=== PATIENT | male | born 1965 | race Caucasian/White ===

== ENCOUNTER 2019-09-11 22:24 | Inpatient (IN) ==
[2019-09-11] MEDS ORDERED: NITROGLYCERIN SL PRN (22:34)
[2019-09-11] MEDS ORDERED: ASPIRIN PO ONE (22:34)
[2019-09-11 22:54] LABS: BASO# 0.04 X1000 (0.0-0.2); BASO% 0.4 % (0.0-0.8); EOS# 0.32 X1000 (0.0-0.7); HEMATOCRIT 50.6 % (42.0-52.0); HEMOGLOBIN 17.5 g/dL (14.0-18.0); IMM GRAN# 0.02 X1000 (0.0-0.04); IMM GRAN% 0.2 % (0.0-0.5); LYMPH# 4.45 X1000 (1.2-3.4); LYMPH% 42.3 % (20.5-51.1); MCH 30.6 PG (27-31); MCHC 34.6 g/dL (33-37); MCV 88.6 FL (81-99); MONO# 0.84 X1000 (0.11-0.59); MPV 9.6 FL (7.4-10.4); NEUT# 4.85 X1000 (1.4-6.5); NEUT% 46.1 % (42.2-75.2); PLT 296 X1000 (130-400); RBC 5.71 XMIL (4.7-6.1); RDW 13.7 % (11.5-14.5); WBC 10.52 X1000 (4.8-10.8)
[2019-09-11 23:08] LABS: INR 0.89; PROTIME 12.1 Seconds (11.0-16.0)
[2019-09-11 23:09] LABS: PTT 36.2 Seconds (22.3-41.8)
[2019-09-11 23:19] LABS: AGAP 10; ALB/GLOB RATIO 1.3; ALBUMIN 4.1 g/dL (3.5-5.0); ALKALINE PHOSPHATASE 110 U/L (32-122); BUN 12 mg/dL (8-22); CHLORIDE 103 mmol/L (98-107); COSMO 274; CREATININE 0.9 mg/dL (0.7-1.2); ESTIMATED GFR > 60; GLUCOSE 114 mg/dL (70-104); GOT 46 U/L (10-34); GPT 42 U/L (10-44); POTASSIUM 4.8 mmol/L (3.5-5.1); SODIUM 137 mmol/L (136-145); TCO2 24 mmol/L (25-35); TOTAL BILIRUBIN 0.22 mg/dL (0.20-1.00); TOTAL PROTEIN 7.2 g/dL (6.3-8.3)
[2019-09-11 23:22] LABS: CK PROFILE 417 U/L (24-204)
[2019-09-11] MEDS ORDERED: ZOFRAN IV ONE (23:48)
[2019-09-11] MEDS ORDERED: DILAUDID IV ONE (23:48)
[2019-09-11 23:51] LABS: CK INDEX 6.3 (0.0-2.5); CK-MB 26.25 ng/mL (0.0-5.0)
[2019-09-12] MEDS ORDERED: LOVENOX 1 MG/KG SUBQ ONE (00:06)
[2019-09-12] MEDS ORDERED: LOVENOX SUBQ ONE (00:15)
--- NOTE | 2019-09-12 00:20 | EKG Report ---
Test Performed on : 09/11/2019 10:26:09 PM Test Reason : chest pain Blood Pressure : / mmHG Vent. Rate : 049 BPM Atrial Rate : 049 BPM P-R Int : 108 ms QRS Dur : 104 ms QT Int : 436 ms P-R-T Axes : 062 -28 045 degrees QTc Int : 393 ms Sinus bradycardia. with short OR Inferior infarct , age undetermined Abnormal ECG No previous ECGs available Unconfirmed Result
--- NOTE | 2019-09-12 00:29 | PROVIDER DOCUMENTATION ---
This chart was entered by Ariadna Jimenez Scribe, acting as scribe for Ochoa Starr MD. HPI-Chest Pain - General Chief Complaint: Chest Pain Stated Complaint: CHEST PAIN SHORTNESS OF BREATH ARM NUMBNESS Time Seen by Provider: 09/11/19 22:55 Source: patient Allergies/Adverse Reactions: Patient Allergies Allergy/AdvReac Type Severity Reaction Status Date / Time iodine Allergy Unknown Verified 09/11/19 23:17 Penicillins Allergy Unknown Verified 09/11/19 23:17 Sulfa (Sulfonamide Allergy Unknown Verified 09/11/19 23:17 Antibiotics) mold AdvReac RASH Verified 09/11/19 23:17 mushroom AdvReac RASH Verified 09/11/19 23:17 Home Medications: Home Medication List Medication Instructions Recorded Confirmed Last Taken Type Hydrocodone/Acetaminophen [[place] 1 ea PO DIRECTED 01/24/19 01/24/19 Unknown History 5-325 Tablet] ATORVAstatin [Lipitor] 40 mg PO QHS 09/12/19 09/12/19 Unknown History Gabapentin [Neurontin] 300 mg PO TID 09/12/19 09/12/19 Unknown History Levetiracetam 500 mg PO BID 09/12/19 09/12/19 Unknown History Omeprazole 40 mg PO DAILY 09/12/19 09/12/19 Unknown History Zonisamide [Zonegran] 100 mg PO BID 09/12/19 09/12/19 Unknown History - History of Present Illness-CP Nature of Presenting Problem: pt is a 54 yr old male presenting with 2 day complaint of chest pain, body/joint aches, productive cough with excess sputum and fever. pt reports chest pain worse with coughing and breathing. pt admits hx of CAD and asthma Location: reports: substernal, other (general body) Chest Pain Radiation: reports: no radiation Quality of Pain: reports: aching Severity in ED: moderate Onset/Duration: 2 days ago Timing: still present Context/Activities at Onset: reports: light activity Modifying Factors: improves with: breathing (worsens chest pain), coughing (worsens chest pain). worse with: rest (no improvement) Associated Symptoms: reports: denies symptoms Nitro Today/Relief: no nitro taken today Aspirin Treatment Today: 325 mg x 1, provided by ED Similar Symptoms Previously?: No Recently Seen Here or By Another Healthcare Provider: No Review of Systems - Adult - REVIEW OF SYSTEMS - ADULT Constitutional: reports: fatique. denies: fever Eyes: denies: discharge, redness Ears, Nose, Mouth & Throat: denies: ear pain, sinus problem, throat pain Cardiovascular: reports: chest pain, palpitations. denies: syncope Respiratory: reports: shortness of breath. denies: cough Gastrointestinal: reports: abdominal pain. denies: nausea, vomiting Genitourinary: reports: no symptoms reported Musculoskeletal: reports: muscle aches Integumentary: reports: no symptoms reported Neurological: denies: dizziness/vertigo, headache/migraines, syncope Psychiatric: reports: no symptoms reported Endocrine: reports: no symptoms reported Hematologic/Lymphatic: reports: no symptoms reported Allergic/Immunologic: reports: no symptoms reported All Other Systems: Reviewed and Negative Past History - Adult - PAST MEDICAL HISTORY-ADULT Review of Records: reports: Old Records Reviewed, Nursing Assessment Review, Medications Reviewed, Social history reviewed & non-contributory. Major Childhood Illnesses: reports: denies history Cardiovascular: reports: CAD, HTN Respiratory: reports: asthma Gastrointestinal: reports: cancer Obstetrical/Gynecological: reports: denies history Genitourinary: reports: denies history Musculoskeletal: reports: denies history Neurological: reports: denies history Endocrine/Immune: reports: denies history Other Conditions: reports: denies history - IMMUNIZATION STATUS Childhood Immunizations: See Nurse Assessment Flu Vaccine: See Nurse Assessment - FAMILY HISTORY Family History: reviewed, not pertinent - SOCIAL HISTORY Smoking: cigarettes Provider spent 3-5 mins advising pt. on dangers of tobacco.: Discussed manners to quit use, and f/u contacts for add'l counseling. Substance Use: alcohol Living Situation: family Physical Exam-General - PHYSICAL EXAM-ADULT Initial Vital Signs Reviewed: Yes - CONSTITUTIONAL General Appearance: appears well, alert, no apparent distress - EYES Eyes: PERRL/EOMI - HEAD, EARS, NOSE, MOUTH & THROAT HENMT: normocephalic/atraumatic, moist mucous membranes, normal ENT inspection - NECK Neck: non-tender, full range of motion, supple, normal inspection - RESPIRATORY Respiratory: chest non-tender, lungs clear, normal breath sounds, no respiratory distress, no accessory muscle use - CARDIOVASCULAR Cardiovascular: normal peripheral pulses, no edema, bradycardia - GASTROINTESTINAL (ABDOMEN) Abdominal Exam: normal bowel sounds, non tender, soft - LYMPHATIC Lymphatic: no adenopathy - MUSCULOSKELETAL Back Exam: normal inspection Extremity: normal range of motion, non-tender, normal gait, normal inspection - SKIN Integumentary: normal color, normal turgor, warm/dry - NEUROLOGIC Neurologic: grossly normal, no motor/sensory deficits - PSYCHIATRIC Psych/Mental Status: normal mood/affect, normal thought content, normal thought process, oriented x 3 - HEART Score HEART Score: History: Moderately Suspicious HEART Score: ECG: Non-Specific Repolarization Disturbance/LBBB/PM HEART Score: Age: 45-65 Years HEART Score: Risk Factors for Atherosclerotic Disease: > or = 3 Risk Factors or History of Atherosclerotic Disease HEART Score: Troponin: > or = 3x Normal Limit Total HEART Score:: 7 Progress - PLAN OF CARE/RESULTS Progress/Plan/Lab Results: Vital Signs - 8 hr 09/11/19 22:24 09/11/19 23:13 Temperature 97.6 F Pulse Rate 54 L 52 L Respiratory Rate 19 21 Blood Pressure 152/90 159/99 O2 Sat by Pulse Oximetry 100 97 Laboratory Results - last 24 hr 09/11/19 09/11/19 09/11/19 22:37 22:37 22:37 WBC 10.52 RBC 5.71 Hgb 17.5 Hct 50.6 MCV 88.6 MCH 30.6 MCHC 34.6 RDW Std Deviation 13.7 Plt Count 296 MPV 9.6 Immature Gran % (Auto) 0.2 Neut % (Auto) 46.1 Lymph % (Auto) 42.3 [place] % (Auto) 8.0 Eos % (Auto) 3.0 Baso % (Auto) 0.4 Immature Gran # (Auto) 0.02 Neut # (Auto) 4.85 Lymph # (Auto) 4.45 H [place] # (Auto) 0.84 H Eos # (Auto) 0.32 Baso # (Auto) 0.04 PT INR PTT (Actin FS) Sodium 137 Potassium 4.8 Chloride 103 Carbon Dioxide 24 L Anion Gap 10 BUN 12 Creatinine 0.9 Estimated GFR/1.73 m2 > 60 BUN/Creatinine Ratio 13 Glucose 114 H Calculated Osmolality 274 Calcium 9.0 Total Bilirubin 0.22 AST 46 H ALT 42 Alkaline Phosphatase 110 Creatine Kinase 417 H Creatine Kinase Index 6.3 H CK-MB (CK-2) 26.25 H Troponin T High Sens [id number] Pept 227 H Total Protein 7.2 Albumin 4.1 Globulin 3.1 Albumin/Globulin Ratio 1.3 09/11/19 09/11/19 22:37 22:37 WBC RBC Hgb Hct MCV MCH MCHC RDW Std Deviation Plt Count MPV Immature Gran % (Auto) Neut % (Auto) Lymph % (Auto) [place] % (Auto) Eos % (Auto) Baso % (Auto) Immature Gran # (Auto) Neut # (Auto) Lymph # (Auto) [place] # (Auto) Eos # (Auto) Baso # (Auto) PT 12.1 INR 0.89 PTT (Actin FS) 36.2 Sodium Potassium Chloride Carbon Dioxide Anion Gap BUN Creatinine Estimated GFR/1.73 m2 BUN/Creatinine Ratio Glucose Calculated Osmolality Calcium Total Bilirubin AST ALT Alkaline Phosphatase Creatine Kinase Creatine Kinase Index CK-MB (CK-2) Troponin T High Sens 183 H* [id number] Pept Total Protein Albumin Globulin Albumin/Globulin Ratio Orders Category Date Time Status Cardiac Monitoring DIRECTED Care 09/11/19 22:34 Active Oxygen Therapy- ED Nursing DIRECTED Care 09/11/19 22:34 Active Saline Loc NOW Care 09/11/19 22:34 Active Use Oxygen.Protocol ORDERED Care 09/11/19 23:49 Active CHEST-2 VIEWS [RAD] Stat Exams 09/11/19 22:34 Taken CBC WITH ELECTRONIC DIFF [HEME] Stat Lab 09/11/19 22:37 Completed CK PROFILE [SP CHEM] Stat Lab 09/11/19 22:37 Completed COMPREHENSIVE METABOLIC PANEL [CHEM] Stat Lab 09/11/19 22:37 Completed INFLUENZA SCREEN A/B Stat Lab 09/11/19 23:20 Received PRO B-NATRIURETIC PEPTIDE Stat Lab 09/11/19 22:37 Completed PROTIME WITH INR [COAG] Stat Lab 09/11/19 22:37 Completed PTT [COAG] Stat Lab 09/11/19 22:37 Completed TROPONIN T HIGH SENSITIVITY Stat Lab 09/11/19 22:37 Completed Aspirin Med 09/11/19 22:34 Discontinued 325 mg PO NOW ONE Enoxaparin [Lovenox] Med 09/12/19 00:15 Discontinued 80 mg SUBQ NOW ONE Hydromorphone [Dilaudid] Med 09/11/19 23:48 Discontinued 1 mg IV NOW ONE Nitroglycerin Sl [Nitroglycerin] Med 09/11/19 22:34 Active 0.4 mg SL Q5M PRN PRN Ondansetron [Zofran] Med 09/11/19 23:48 Discontinued 4 mg IV NOW ONE CP/SOB/Palp >45 yrs of Age Stat Oth 09/11/19 22:34 Ordered EKG [EKG] Stat Ther 09/11/19 22:34 Draft Result Diagrams: 09/11/19 22:37 09/11/19 22:37 - EKG 1 Time of EKG reading by physician:: 22:26 EKG Read and Signed by:: Ochoa Starr EKG Interpretation (*Must complete 3 of following elements*): Abnormal (inferior infarct-age undetermined) Rate: 49 Rhythm: sinus bradycardia with short TX [place]: normal QRS: normal [place] Interval: shortened - CONSULTS/PCP/HOSPITALIST Notification #1 *Consult/PCP/Hospitalist*: Dr Solomon Time Discussed: 00:03 Consult Disposition: other (agreed with admit and lovenox) #2 Consult: Dr Elam Time Discussed: 00:27 Consult Disposition: Will see in ED, Admit Departure - Departure Date of Disposition Decision: 09/12/19 Time of Disposition Decision: 00:04 DIAGNOSIS: NSTEMI (non-ST elevated myocardial infarction), HTN (hypertension) Disposition: ADMITTED INPATIENT 09 Certified Medical Emergency: Emergent Condition: Serious Referrals and Follow-Ups: Sonia Cardenas MD [Primary Care Provider] - - Critical Care Note This patient required my direct & personal management of CC.: No Attestation - Physician/ ZOILA Attestation Patient care was provided by Advanced Practice Provider:: No The physician spent face to face time with patient:: Yes Advanced Practice Provider documentation review:: Supervising physician onsite and consulted in the evaluation and care of this patient. The physician did have a face to face encounter with the patient. This chart was documented by the indicated scribe, (Ariadna Jimenez Scribe) and accurately reflects the services I performed and decisions made by me, Ochoa Starr MD, as attested by the provider's signature.
[2019-09-12] MEDS ORDERED: TYLENOL PO PRN (02:07)
[2019-09-12] MEDS ORDERED: ZOFRAN IV PRN (02:07)
--- NOTE | 2019-09-12 04:59 | Diag Imaging Result Doc PS360 ---
EXAM: CHEST-2 VIEWS HISTORY: chest pain TECHNIQUE: Two views COMPARISON: None. FINDINGS: The lungs are hyperexpanded. The heart is not enlarged. The vessels are small. There are no infiltrates. No pleural effusions. IMPRESSION: Emphysema Electronically signed by Tushar Prieto 09/12/2019 4:56 AM
[2019-09-12] MEDS ORDERED: MORPHINE IV PRN (05:36)
--- NOTE | 2019-09-12 05:36 | EKG Report ---
Test Performed on : 09/12/2019 03:08:43 AM Test Reason : cp Blood Pressure : / mmHG Vent. Rate : 046 BPM Atrial Rate : 046 BPM P-R Int : 106 ms QRS Dur : 096 ms QT Int : 476 ms P-R-T Axes : 037 -29 026 degrees QTc Int : 416 ms Sinus bradycardia. with short NM Minimal voltage criteria for LVH, may be normal variant Inferior infarct (cited on or before 11-SEP-2019) Abnormal ECG When compared with ECG of 11-SEP-2019 22:26, (Unconfirmed) No significant change was found Unconfirmed Result
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
[2019-09-12] MEDS ORDERED: LIPITOR PO ONE (07:44)
--- NOTE | 2019-09-12 08:01 | EKG Report ---
Test Performed on : 09/12/2019 07:37:49 AM Test Reason : [place] Blood Pressure : / mmHG Vent. Rate : 053 BPM Atrial Rate : 053 BPM P-R Int : 112 ms QRS Dur : 102 ms QT Int : 462 ms P-R-T Axes : 049 -14 036 degrees QTc Int : 433 ms Sinus bradycardia. Moderate voltage criteria for LVH, may be normal variant Borderline ECG When compared with ECG of 12-SEP-2019 03:08, (Unconfirmed) No significant change was found Confirmed by Sherrell Toledo MD ([id number]) on 09/12/2019 12:16:10 PM
[2019-09-12] MEDS ORDERED: PRILOSEC PO SCH (09:00)
[2019-09-12] MEDS ORDERED: KEPPRA PO SCH (09:00)
[2019-09-12] MEDS ORDERED: NEURONTIN PO SCH (09:00)
[2019-09-12] MEDS ORDERED: ASPIRIN PO SCH (09:00)
[2019-09-12] MEDS ORDERED: ZONEGRAN PO SCH (09:00)
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
[2019-09-12 11:24] VITALS: BP 120/71
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
[2019-09-12 11:36] LABS: CK-MB 43.81 ng/mL (0.0-5.0)
[2019-09-12] MEDS ORDERED: LOVENOX SUBQ SCH (12:30)
[2019-09-12] MEDS ORDERED: LIPITOR PO SCH (21:00)
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
== END 2019-09-12 14:45 | disposition short-term general hospital (02) | DRG 282 ==
LOC: ED 22:24 → SUATTDRO 09-12 02:20 → EDIPHOLD 09-12 02:20 → 2N 09-12 04:39
PROVIDERS: ATTEND Internal Medicine